=== PATIENT | male | born 1960 | race Caucasian/White ===

== ENCOUNTER → 2024-01-22 | Outpatient (CLI) | payer MEDICARE ==
[2024-01-22 16:25] LABS: BASO # 0.01 K/mm3 (0.02-0.10); EOS # 0.17 K/mm3 (0.04-0.40); EOS % 3.4 % (0.0-4.0); HEMATOCRIT 46.4 % (42.0-52.0); HEMOGLOBIN 16.3 g/dL (13.5-18.0); LYMPH# 1.04 K/mm3 (1.50-4.00); MEAN CELL VOLUME 89 fl (78-100); MEAN CORPUSCULAR HEMOGLOBIN 31 pg (27-31); MEAN CORPUSCULAR HGB CONC 35 g/dL (33-37); MEAN PLATELET VOLUME 10.2 fl (7.4-10.4); MONO # 0.48 K/mm3 (0.20-0.80); NEU # 3.27 K/mm3 (1.40-6.50); PLATELET COUNT 201 K/mm3 (130-400); RED BLOOD COUNT 5.21 M/mm3 (4.20-5.60); RED CELL DISTRIBUTION WIDTH 13.3 % (11.5-14.5)
[2024-01-22 16:29] LABS: ALBUMIN 4.2 g/dL (3.4-4.8)
[2024-01-22 16:31] LABS: CALCIUM 9.7 mg/dL (8.3-10.5)
[2024-01-22 16:32] LABS: TOTAL PROTEIN 7.3 g/dL (6.2-8.1)
[2024-01-22 16:34] LABS: TOTAL BILIRUBIN 0.7 mg/dL (0.2-1.2)
== END ==
LOC: LAB 16:08
PROVIDERS: Family Medicine
DX: I10 Essential (primary) hypertension (principal)

== ENCOUNTER → 2024-02-17 | Outpatient (CLI) | payer MEDICARE ==
[2024-02-17 08:26] LABS: CALCIUM 10.2 mg/dL (8.3-10.5)
== END ==
LOC: LAB 07:56
PROVIDERS: Family Medicine
DX: Z12.5 Encounter for screening for malignant neoplasm of prostate (principal); Z13.1 Encounter for screening for diabetes mellitus; Z13.220 Encounter for screening for lipoid disorders; I10 Essential (primary) hypertension